=== PATIENT | male | born 1990 | race Caucasian/White ===

== ENCOUNTER → 2020-04-20 07:27 | Outpatient (CLI) | payer OTHER, SELFPAY ==
--- NOTE | 2020-04-20 | DI.MRI.S_ITS ---
PROCEDURE: MR CERVICAL SPINE WO CON INDICATIONS: Cervicalgia TECHNIQUE: Noncontrast sagittal T1 spin echo and T2 fast spin echo, sagittal STIR, foraminal oblique sagittal T2 fast spin echo, and axial gradient echo or T2 fast spin echo through the cervical spine. COMPARISON: None. FINDINGS: Image quality: Excellent. Alignment and Curvature: There is loss of normal cervical lordosis. Bone Marrow: Marrow demonstrates normal overall signal. Minimal reactive signal within the endplates adjacent to the C3-C4, C4-C5, C5-C6, and C6-C7 intervertebral discs. Spinal Cord: Visualized spinal cord has normal size and signal. No cerebellar tonsillar herniation. Paraspinous Soft Tissues: No paravertebral masses. Prevertebral soft tissues are normal in thickness. C2-C3: Normal appearance. C3-C4: Mild disc desiccation. Mild diffuse disc bulge. Mild facet and uncovertebral hypertrophy bilaterally. Mild canal stenosis. Mild bilateral foraminal stenosis. C4-C5: Mild disc desiccation and diffuse disc bulge. Mild facet and uncovertebral hypertrophy. Mild canal stenosis. Mild bilateral foraminal stenosis. C5-C6: Mild disc desiccation and diffuse disc bulge. Mild facet and uncovertebral hypertrophy bilaterally. Mild canal stenosis. Mild bilateral foraminal stenosis. C6-C7: Mild disc desiccation and diffuse disc bulge. Mild facet and uncovertebral V. bilaterally. Mild canal stenosis. Mild bilateral foraminal stenosis. C7-T1: Normal appearance. IMPRESSION: Multilevel degenerative disc and facet disease, as well as uncovertebral hypertrophy, causing mild canal and foraminal stenoses as described above. No neural impingement. Dictated by: uSe Hwang M.D. on 04/20/2020 at 9:31 Approved by: Sue Hwang M.D. on 04/20/2020 at 9:36
== END ==
PROVIDERS: PCP Family Medicine; Referring Provider Family Medicine; Visit Provider Family Medicine
DX: M50.31 Other cervical disc degeneration, high cervical region (principal); M48.02 Spinal stenosis, cervical region
CPT/HCPCS: 72141